=== PATIENT | female | born 1995 | race Caucasian/White ===

== ENCOUNTER 2018-04-05 21:38 | Emergency (ER) | payer OTHER, SELFPAY ==
[2018-04-05 21:39] VITALS: BP 126/66; PULSE 79; RESP 20; TEMP 36.7; O2SAT 97; BMI 31.9
--- NOTE | 2018-04-05 21:42 | RAD_ITS ---
STUDY: X-RAY - RIGHT ANKLE REASON FOR EXAM: Female, 22 years old. Slipped, twisted ankle. TECHNIQUE: 3 view(s) of the ankle. COMPARISON: None. FINDINGS: Normal visualized distal tibia and fibula. Normal medial and lateral malleoli. Normal tibiotalar articulation and ankle mortise. Normal visualized talus and calcaneus. The visualized subtalar, talonavicular, calcaneocuboid and tarsal articulations are normal. The soft tissue structures are unremarkable. RAD/Ankle min 3 Views IMPRESSION: Normal x-ray examination of the ankle. Electronically Signed: Magi Pisano MD at 22:09 EST Tel , Service support ,
--- NOTE | 2018-04-05 22:29 | ED.VISSUMM ---
- ER Visit Summary Date of Service: 04/05/18 Chief Complaint: Right ankle pain History of Present Illness: The patient is a 22 F who inverted her right ankle after a misstep going up steps earlier today. She can bear weight but has lateral pain. She has no knee injury no pain in her foot no other injury Physical Examination: Otherwise unremarkable exam, she has no knee pain no proximal fibular tenderness. She has no proximal fifth metatarsal pain. She has lateral malleolus tenderness and anterior ankle pain no laxity stable ankle. No proximal fifth metatarsal tenderness. Test Results: X-ray done per protocol shows a normal right ankle with no fracture. Emergency Department Course and Treatment: Aircast will be provided Discharge stable condition Impression: Right ankle sprain This note was generated with [employer] dictation software. It may contain incorrect words, spelling, and punctuation that were not noted in review of the chart prior to signing ED Disposition - Plan for ED Patient: Disposition: Home or Assisted Living Chief Complaint: Lower Extremity Injury Instructions: ED Sprain Ankle W X Ray Referrals: Km Barry DO [Primary Care Provider] - 1 Week if not improving
--- NOTE | 2018-04-05 22:33 | ED.DCSUM_ITS ---
- ER Visit Summary Date of Service: 04/05/18 Chief Complaint: Right ankle pain History of Present Illness: The patient is a 22 F who inverted her right ankle after a misstep going up steps earlier today. She can bear weight but has lateral pain. She has no knee injury no pain in her foot no other injury Physical Examination: Otherwise unremarkable exam, she has no knee pain no proximal fibular tenderness. She has no proximal fifth metatarsal pain. She has lateral malleolus tenderness and anterior ankle pain no laxity stable ankle. No proximal fifth metatarsal tenderness. Test Results: X-ray done per protocol shows a normal right ankle with no fractu re. Emergency Department Course and Treatment: Aircast will be provided Discharge stable condition Impression: Right ankle sprain This note was generated with [employer] dictation software. It may contain incorrect words, spelling, and punctuation that were not noted in review of the chart prior to signing ED Disposition - Plan for ED Patient: Disposition: Home or Assisted Living Chief Complaint: Lower Extremity Injury Instructions: ED Sprain Ankle W X Ray Referrals: Km Barry DO [Primary Care Provider] - 1 Week if not improving
[2018-04-05 22:43] VITALS: BP 126/80; PULSE 77; RESP 16; O2SAT 99
== END 2018-04-05 22:47 | disposition home or self-care (01) ==
PROVIDERS: Emergency Provider Emergency Medicine; Family Provider Student in an Organized Health Care Education/Training Program; PCP Student in an Organized Health Care Education/Training Program
DX: S93.401A Sprain of unspecified ligament of right ankle, initial encounter (principal); W18.49XA Other slipping, tripping and stumbling without falling, initial encounter; Y93.89 Activity, other specified
CPT/HCPCS: 73610; 99283

== ENCOUNTER 2018-06-03 05:50 | Emergency (ER) | payer OTHER, SELFPAY ==
[2018-06-03 05:51] VITALS: BP 139/81; PULSE 73; RESP 17; TEMP 36.4; O2SAT 96; BMI 28.1
[2018-06-03 05:59] VITALS: BP 139/81; PULSE 73; RESP 17; TEMP 36.4; O2SAT 96
--- NOTE | 2018-06-03 06:12 | US_ITS ---
STUDY: ULTRASOUND OF THE FEMALE PELVIS - COMPLETE REASON FOR EXAM: Female, 22 years old. Right lower quadrant pain. LMP: May 31, 2018. TECHNIQUE: Transabdominal. TECHNICAL QUALITY: Adequate. COMPARISON: None. FINDINGS: The uterus is anteverted and is in a midline position. The uterus measures 5.9 x 2.8 x 2.1 cm. Normal uterine cervix. The endometrium measures 3 mm in thickness, and is hyperechoic. There is no demonstrated endometrial mass. There is no demonstrated myometrial mass. I.U.D. - The patient does not have an I.U.D. The right ovary is visualized. The right ovary measures 3.7 x 2.4 x 2.0 cm. There is 2.0 cm cyst. There is no visualized right adnexal mass or complex lesion. There is normal arterial and normal venous vascularity. The left ovary is visualized. The left ovary measures 3.7 x 2.2 x 1.5 cm. There is no left ovarian cyst or ovarian mass. There is no visualized left adnexal mass or complex lesion. There is normal arterial and normal venous vascularity. There is no fluid in the cul-de-sac. The pre void volume of the bladder was 283 ml. US/Pelvic (Non ) IMPRESSION: Right adnexal cyst. Electronically Signed: Robert Duenas MD at 8:44 EST , Service support ,
--- NOTE | 2018-06-03 06:33 | ED.DCSUM_ITS ---
- ER Visit Summary Date of Service: 06/03/18 Chief Complaint: Pelvic pain History of Present Illness: The patient is a 22 F who complains of right lower abdominal and pelvic pain. She points to the right side of her pelvis. She states this was abrupt sudden onset about an hour and a half ago. She states her pain is excruciating and rates it as 8 out of 10. She currently is on her menstrual period. This is normal timing and her last period was 1 month ago. She denies any urinary symptoms such as dysuria frequency or urgency. No recent abnormal vaginal discharge. She did have one episode of nonbloody nonbilious emesis. No fevers. No history of prior similar symptoms. No history of ovarian cyst. No history of abdominal surgery. Physical Examination: Afebrile vitals normal Patient resting comfortably in no distress Heart regular rate and rhythm Lungs are clear the abdomen is soft nondistended she does have some very low right lower abdominal or pelvic tenderness no guarding no rebound Test Results: BMP normal. Urinalysis normal. negative. Pelvic ultrasound and CBC pending at the time of this dictation. Emergency Department Course and Treatment: Patient was given IV Toradol and Zo cecilia. She is resting comfortably on reevaluation. Given how low her pain is and the abrupt sudden onset I suspect this is more likely pelvic in origin possibly ovarian cyst. Ovarian torsion is lower on the differential given that she does appear quite comfortable. Patient signed out to the oncoming physician for follow-up on pelvic ultrasound results. Treatment Plan: [] Disposition: Discharge Impression: Right-sided pelvic pain This note was generated with [employer] dictation software. It may contain incorrect words, spelling, and punctuation that were not noted in review of the chart prior to signing ED Disposition - Plan for ED Patient: Chief Complaint: Abd Pain Referrals: Km Barry DO [Primary Care Provider] -
[2018-06-03 06:35] LABS: Mucous, Urine 0 SEEN /hpf (<or=2+); White Blood Cells 0 SEEN /hpf (0-5)
[2018-06-03 06:46] LABS: Anion Gap 9 (5-15); BUN 13 mg/dL (7-18); BUN/Creat Ratio 18.3 RATIO (10-20); Calcium,Total 8.8 mg/dL (8.5-10.1); Chloride 106 mmol/L (98-107); Creatinine, Serum 0.71 mg/dL (0.55-1.02); EST Glomerular Filtration Rate 109 mL/min (>60); Est Glom Filt Rate - Afr Amer 131 mL/min (>60); Estimated Creatinine Clearance 120.86 ml/min; Glucose 83 mg/dL (74-106); Potassium 3.9 mmol/L (3.5-5.1); Sodium Level 139 mmol/L (136-145)
[2018-06-03] MEDS: Ketorolac 30 MG/ML Syringe IV (06:47)
[2018-06-03] MEDS: Ondansetron 4 MG/2 ML Vial IV (06:47)
--- NOTE | 2018-06-03 06:47 | ED.RN ---
PER DR. ARTEAGA, PT DOES NOT MEET SEPSIS REQUIREMENTS, SEPSIS SCREENING CANCELLED.
[2018-06-03 06:50] LABS: Color, Urine Yellow (Yellow); Glucose, Dipstick Normal (Normal); Ketone-Dipstick Negative (Negative); Leukocyte Esterase-Dipstick Negative /ul (Negative); Nitrite-Dipstick Negative (Negative); Occult Blood-Urine 50 /ul (Negative); Protein-Dipstick Negative (Negative); Specific Gravity, Urine 1.015 (1.002-1.030); Urine Bilirubin Dipstick Negative (Negative); Urine Clarity Clear (Clear); Urine Urobilinogen Normal (Normal)
[2018-06-03 06:55] LABS: Bacteria RARE /hpf (None Seen); Squamous Epithelial Cells - UA 0-5 SEEN /hpf (5-10)
[2018-06-03 06:56] LABS: Internal QC Validated? YES +Cl - CLEAR BKGD; Pregnancy, Urine Negative Negative; Red Blood Cells-Urine 0-5 SEEN /hpf (0-5)
[2018-06-03 07:13] LABS: Absolute Lymphocyte Count 2.82 X10^3/ul (0.83-4.51); Absolute Neutrophil Count 6.2 X10^3/uL (2.0-7.7); Basophil# 0.05 X10^3/uL; Basophil% 0.5 % (0-1); Eosinophil# 0.15 X10^3/uL; Eosinophils% 1.5 % (0-5); Hemoglobin 13.1 g/dl (12.0-15.0); Lymphocyte # 2.82 X10^3/ul (4.0); Lymphocyte % 28.3 % (19-41); Mean Corp Hgb Conc 32.8 g/gl (32-36); Mean Corpuscular Hgb 29.2 pg (27.0-32.0); Mean Corpuscular Volume 89.3 fL (81-99); Mean Platelet Vol. 10.2 fl (6.2-12.0); Monocyte# 0.72 X10^3/uL; Monocyte% 7.2 % (0-10); Neutrophil % 62.4 % (47-70); Platelet Count 313 K/mm3 (150-450); RBC Distribution Width CV 12.7 % (11.6-14.6); RBC Distribution Width SD 40.8 fl (35.1-43.9); Red Blood Count 4.48 M/mm3 (4.2-5.4)
[2018-06-03 07:14] LABS: POSITIVE COUNT NO; POSITIVE DIFFERENTIAL NO; POSITIVE MORPHOLOGY NO
[2018-06-03 08:11] VITALS: BP 139/81; PULSE 67; RESP 16; O2SAT 98
--- NOTE | 2018-06-03 09:01 | ED.DEP ---
ED Disposition - Plan for ED Patient: Chief Complaint: Abd Pain Instructions: ED Cyst Ovarian Additional Instructions: call your OBGYN on Tuesday to arrange follow up
[2018-06-03 09:02] VITALS: BP 128/79; PULSE 64; RESP 16; O2SAT 97
== END 2018-06-03 09:07 | disposition home or self-care (01) ==
PROVIDERS: Emergency Medicine; Emergency Provider Emergency Medicine; Family Provider Student in an Organized Health Care Education/Training Program; PCP Student in an Organized Health Care Education/Training Program
DX: N83.201 Unspecified ovarian cyst, right side (principal)
CPT/HCPCS: 76856; 80048; 81001; 81025; 85025; 93976; 96374; 96375; 99283; A4216; J2405

== ENCOUNTER 2019-07-27 20:51 | Emergency (ER) | payer OTHER, SELFPAY ==
[2019-07-27 20:52] VITALS: BP 128/75; PULSE 71; RESP 15; TEMP 36.1; O2SAT 99; BMI 32.8
[2019-07-27 21:02] VITALS: BP 116/68; BP 118/75; BP 126/82; PULSE 65; PULSE 66; PULSE 83
--- NOTE | 2019-07-27 21:02 | EKG12_ITS ---
Test Reason : DYSRHYTHMIA Blood Pressure : / mmHG Vent. Rate : 063 BPM Atrial Rate : 063 BPM P-R Int : 180 ms QRS Dur : 104 ms QT Int : 418 ms P-R-T Axes : 019 014 023 degrees QTc Int : 427 ms Normal sinus rhythm with sinus arrhythmia Normal ECG Confirmed by BRONWYN ASHLEY, PADMINI ([id number]), school photograph editor TRACI CHATTERJEE ([id number]) on 07/30/2019 10:04:01 AM Referred By: KIMBERLEY Confirmed By:PADMINI BARNHART MD
[2019-07-27] MEDS: 0.9% Normal Saline 1,000 ML 1000 ML IV (21:20)
[2019-07-27 21:24] LABS: Absolute Lymphocyte Count 2.69 X10^3/uL (0.83-4.51); Absolute Neutrophil Count 6.5 X10^3/uL (2.0-7.7); Basophil# 0.05 X10^3/uL; Basophil% 0.5 % (0-1); Eosinophil# 0.09 X10^3/uL; Eosinophils% 0.9 % (0-5); Hematocrit 39.7 % (37-47); Lymphocyte # 2.69 X10^3/ul (4.0); Lymphocyte % 27.1 % (19-41); Mean Corp Hgb Conc 32.7 g/dL (32-36); Mean Corpuscular Hgb 28.7 pg (27.0-32.0); Mean Corpuscular Volume 87.6 fL (81-99); Monocyte# 0.59 X10^3/uL; Monocyte% 5.9 % (0-10); NRBC Flagged by Analyzer 0 % (0-5); Neutrophil # 6.47 X10^3/uL (2.7-7.7); Neutrophil % 65.2 % (47-70); Platelet Count 324 K/mm3 (150-450); RBC Distribution Width SD 38.8 fl (35.1-43.9); Red Blood Count 4.53 M/mm3 (4.2-5.4); White Blood Count 9.9 K/mm3 (4.4-11.0)
[2019-07-27 21:46] LABS: Internal QC Validated? YES +Cl - CLEAR BKGD; Pregnancy, Serum, hCG Quali. NEGATIVE Negative
[2019-07-27 21:50] LABS: Anion Gap 6 (5-15); BUN 11 mg/dL (7-18); BUN/Creat Ratio 12.4 RATIO (10-20); Chloride 108 mmol/L (98-107); Creatinine, Serum 0.89 mg/dL (0.55-1.02); EST Glomerular Filtration Rate 83 mL/min (>60); Est Glom Filt Rate - Afr Amer 101 mL/min (>60); Glucose 83 mg/dL (74-106); Potassium 3.7 mmol/L (3.5-5.1); Sodium Level 140 mmol/L (136-145); Thyroid Stim Hormone (TSH) 0.62 uIU/mL (0.358-3.74)
--- NOTE | 2019-07-27 22:17 | ED.DCSUM_ITS ---
- ER Visit Summary Date of Service: 07/27/19 Chief Complaint: [Dizziness and lightheadedness] History of Present Illness: The patient is a 23 F [presents to the emergency department with symptoms for about a week off and on. Patient's have been having some episodes daily where she feels like her hands and feet start to feel tingly and then she becomes very alert of what her body is doing and she gets hot and flushed and then feels somewhat short of breath and out of it. Symptoms usually last 5 or 6 minutes and then they resolved. Patient has been under increased stress lately as she had recently had a break-up with a boyfriend. She is currently on her menstrual period. Patient denies any recent illness. She denies any falls or head injuries. She denies any headache. Patient does have history of depression.] Physical Examination: [HEENT-PERRLA, EOMI. Cranial nerves II through XII grossly intact. TMs clear. Mucous membranes moist. No adenopathy. Cardiovascular-regular rate and rhythm without murmur or ectopy Lungs-clear to auscultation, chest wall stable without crepitus or subcu emphysema Abdomen-normoactive bowel sounds, soft, nontender, no rebound or rigidity, no peritoneal signs. Neuro [id number] and heel cheatham testing within normal limits, negative Romberg, negative for drift, fundi benign Extremities-intact ?4, normal range of motion, normal pulses, atraumatic] Test Results: [EKG obtained arrival shows sinus rhythm with a ventricular rate of 63 bpm with no acute segment changes. CBC with differential was normal. Chemistries normal. TSH was 0.62. hCG was negative.] Emergency Department Course and Treatment: [Patient had orthostatic vital signs here that were negative. Patient received normal saline 1 L IV.] Treatment Plan: [This point etiology of symptoms and dizziness unclear although I suspect possibly anxiety. Patient will be given a prescription for PRN Ativan. Advised to follow-up with primary care physician within next 3 to 5 d ays.] Disposition: [Discharged home in stable condition] Impression: [Dizziness-etiology uncertain Anxiety] This note was generated with [employer] software. It may contain incorrect words, spelling, and punctuation that were not noted in review of the chart prior to signing ED Disposition - Plan for ED Patient: Referrals: Km Barry DO [Primary Care Provider] -
--- NOTE | 2019-07-27 22:20 | ED.DEP ---
ED Disposition - Plan for ED Patient: Instructions: DIZZINESS, Unk Cause, Anxiety Reaction Prescriptions: Lorazepam [Ativan] 1 mg PO TID PRN #10 tab PRN Reason: Anxiety Prescription Printed Referrals: Km Barry DO [Primary Care Provider] - 3-5 Days
== END 2019-07-27 22:29 | disposition home or self-care (01) ==
PROVIDERS: Emergency Provider Emergency Medicine; PCP Student in an Organized Health Care Education/Training Program
DX: R42 Dizziness and giddiness (principal); F41.9 Anxiety disorder, unspecified
CPT/HCPCS: 80048; 84443; 84703; 85025; 93005; 99284; A4216

== ENCOUNTER → 2020-11-17 14:11 | Outpatient (CLI) | payer OTHER, SELFPAY ==
[2019-12-20 11:00] VITALS: BMI 32.8
[2020-11-17 15:50] LABS: Absolute Lymphocyte Count 1.56 X10^3/uL (0.83-4.51); Absolute Neutrophil Count 6.8 X10^3/uL (2.0-7.7); Basophil# 0.03 X10^3/uL; Basophil% 0.3 % (0-1); Eosinophil# 0.05 X10^3/uL; Eosinophils% 0.6 % (0-5); Hematocrit 41.1 % (37-47); Hemoglobin 13.4 g/dL (12.0-15.0); Lymphocyte # 1.56 X10^3/ul (0.83-4.51); Lymphocyte % 17.2 % (19-41); Mean Corp Hgb Conc 32.6 g/dL (32-36); Mean Corpuscular Hgb 29.5 pg (27.0-32.0); Mean Corpuscular Volume 90.3 fL (81-99); Mean Platelet Vol. 10.8 fl (6.2-12.0); Monocyte# 0.62 X10^3/uL; Monocyte% 6.8 % (0-10); NRBC Flagged by Analyzer 0 % (0-5); Neutrophil # 6.78 X10^3/uL (2.7-7.7); Neutrophil % 74.9 % (47-70); Platelet Count 306 K/mm3 (150-450); RBC Distribution Width SD 39.7 fl (35.1-43.9); Red Blood Count 4.55 M/mm3 (4.2-5.4); White Blood Count 9.1 K/mm3 (4.4-11.0)
[2020-11-18 09:11] LABS: HIV - WCH Non-Reactive (Nonreactive); Hepatitis B Surface Antigen Non-Reactive (Nonreactive); Hepatitis C Antibody Non-Reactive (Nonreactive); Rubella IgG Reactive (Nonreactive); Syphilis Antibodies Non-reactive
[2020-11-19 20:08] LABS: Chlamydia By Nucleic Acid AMP Negative (Negative)
[2020-11-19 22:18] LABS: Gonococcus By Nucleic Acid AMP Negative (Negative)
[2020-11-23 15:17] LABS: HPV Reflexed? NOT INDICATED
== END ==
PROVIDERS: PCP Student in an Organized Health Care Education/Training Program; Visit Provider Obstetrics & Gynecology
DX: Z34.81 Encounter for supervision of other normal pregnancy, first trimester (principal); Z12.4 Encounter for screening for malignant neoplasm of cervix; Z11.3 Encounter for screening for infections with a predominantly sexual mode of transmission
CPT/HCPCS: 36415; 85025; 86703; 86762; 86780; 86803; 87086; 87088; 87340; 87491; 87591; 88175; G0145

== ENCOUNTER → 2021-03-13 15:11 | Outpatient (CLI) | payer OTHER, SELFPAY ==
[2021-03-13 16:13] LABS: Hematocrit 34.5 % (37-47); Hemoglobin 11.2 g/dL (12.0-15.0); Mean Corp Hgb Conc 32.5 g/dL (32-36); Mean Corpuscular Hgb 29.4 pg (27.0-32.0); Mean Corpuscular Volume 90.6 fL (81-99); Mean Platelet Vol. 10.6 fl (6.2-12.0); Platelet Count 251 K/mm3 (150-450); RBC Distribution Width CV 13.2 % (11.6-14.6); RBC Distribution Width SD 43.2 fl (35.1-43.9); Red Blood Count 3.81 M/mm3 (4.2-5.4); White Blood Count 13.2 K/mm3 (4.4-11.0)
[2021-03-13 16:23] LABS: Glucose Challenge Gest 1H 50g 140 mg/dL (70-140)
== END ==
PROVIDERS: PCP Student in an Organized Health Care Education/Training Program; Visit Provider Obstetrics & Gynecology
DX: Z34.82 Encounter for supervision of other normal pregnancy, second trimester (principal)
CPT/HCPCS: 36415; 82950; 85027

== ENCOUNTER 2021-04-15 20:25 | Emergency (ER) | payer OTHER, SELFPAY ==
[2021-04-15 20:26] VITALS: BP 120/80; PULSE 75; RESP 16; TEMP 35.7; O2SAT 98; BMI 35.4
--- NOTE | 2021-04-15 21:01 | EKG12_ITS ---
Test Reason : CP Blood Pressure : / mmHG Vent. Rate : 065 BPM Atrial Rate : 065 BPM P-R Int : 156 ms QRS Dur : 096 ms QT Int : 392 ms P-R-T Axes : 039 042 040 degrees QTc Int : 407 ms Normal sinus rhythm Normal ECG Confirmed by PAULETTE ASHLEY, MARCK ([id number]), mapping editor TRACI CHATTERJEE ([id number]) on 04/17/2021 9:27:28 A M Referred By: KIMBERLI/AMIRA Confirmed By:JASON CALDWELL MD
== END 2021-04-15 21:18 | disposition left against medical advice (07) ==
LOC: ED 21:24
PROVIDERS: PCP Student in an Organized Health Care Education/Training Program
DX: R06.02 Shortness of breath (principal); Z53.21 Procedure and treatment not carried out due to patient leaving prior to being seen by health care provider
CPT/HCPCS: 93005

== ENCOUNTER 2021-05-23 12:52 | Outpatient (CLI) | payer OTHER, MEDICAID, SELFPAY ==
[2021-05-23] VITALS (9 sets, daily range): BP systolic 132–150; BP diastolic 79–91; PULSE 56–92; TEMP 36.3; BMI 36.6
[2021-05-23] MEDS: Acetaminophen 500 MG Tablet 1000 MG PO (14:06)
[2021-05-23 14:22] LABS: Hematocrit 31.6 % (37-47); Hemoglobin 10.6 g/dL (12.0-15.0); Mean Corp Hgb Conc 33.5 g/dL (32-36); Mean Corpuscular Hgb 28.7 pg (27.0-32.0); Mean Corpuscular Volume 85.6 fL (81-99); Mean Platelet Vol. 10.8 fl (6.2-12.0); Platelet Count 217 K/mm3 (150-450); RBC Distribution Width CV 13.1 % (11.6-14.6); RBC Distribution Width SD 40.2 fl (35.1-43.9); Red Blood Count 3.69 M/mm3 (4.2-5.4); White Blood Count 11.3 K/mm3 (4.4-11.0)
[2021-05-23 14:25] LABS: Protein, Urine (Random) 348.8 mg/dL (<11.9); Protein:Creat Ratio 890 mg/g CRE (0-200)
[2021-05-23 14:26] LABS: Mucous, Urine 0 SEEN /hpf (<or=2+)
[2021-05-23 14:27] LABS: Color, Urine Yellow (Yellow); Glucose, Dipstick Normal (Normal); Ketone-Dipstick 15 mg/dl (Negative); Leukocyte Esterase-Dipstick 100 /ul (Negative); Nitrite-Dipstick Negative (Negative); Occult Blood-Urine 25 /ul (Negative); Protein-Dipstick 100 mg/dl (Negative); Specific Gravity, Urine 1.025 (1.002-1.030); Urine Clarity Cloudy (Clear); Urine Urobilinogen 1 mg/dl (Normal)
[2021-05-23 14:29] LABS: Urine Bilirubin Dipstick 1 mg/dL (Negative)
[2021-05-23 14:33] LABS: White Blood Cells 0-5 SEEN /hpf (0-5)
[2021-05-23 14:34] LABS: Bacteria 3+ /hpf (None Seen); Red Blood Cells-Urine 0-5 SEEN /hpf (0-5); Squamous Epithelial Cells - UA 10-25 SEEN /hpf (5-10)
[2021-05-23 14:46] LABS: AST(SGOT) 10 U/L (15-37); Alanine Aminotransfer ALT/SGPT 14 U/L (13-56); Creatinine, Serum 0.51 mg/dL (0.55-1.02); EST Glomerular Filtration Rate 156 mL/min (>60); Est Glom Filt Rate - Afr Amer 189 mL/min (>60); Estimated Creatinine Clearance 163.98 ml/min; LDH 143 U/L (84-246); Uric Acid 4.5 mg/dL (2.6-6.0)
--- NOTE | 2021-05-24 09:32 | PN_ITS ---
Progress Note 25-year-old G1, P0 at 35/1 weeks presenting with swelling of her lower extremities and hands and headache without vision changes. Blood pressure ahmet vated upon arrival, decreased after being assessed in triage. No severe range blood pressures. Denied headache, vision changes, chest pain, shortness of breath, nausea or vomiting, right upper quadrant pain. Preeclampsia labs sent. Labs were within normal limits aside from urine protein creatinine ratio, however urinalysis appeared contaminated. Planned for 24-hour urine and blood pressure check in the next day. Swelling minimal per RN. heart rate:125/mod shubham/+accel/no decel [place]: quiet Assessment/plan: Gestational hypertension at this time, questionable preeclampsia without severe features. Has urinalysis was contaminated, will 24- hour urine collection pending for protein. Signs and symptoms of preeclampsia reviewed, patient discharged. Will have follow-up in office this week. Headache improved with Tylenol.
[2021-05-24 16:37] LABS: 24 Hour Urine Protein 864.4 mg/24HR (<150 MG/24HR); 24HR. UA Prot. Total Volume 2825 mL; 24HR. Urine Creatinine 0.75 g/24 HR (0.70-1.90); Urine Protein (24 Hour) 30.6 mg/dL (<11.9)
[2021-05-24 16:54] LABS: Creatinine Serum Creat 0.5 mg/dL (0.6-1.0); Creatinine Urine 26.8 mg/dL (NO RANGE EST.); EST Glomerular Filtration Rate 156 mL/min (>60); Est Glom Filt Rate - Afr Amer 188 mL/min (>60)
[2021-05-24 16:56] LABS: Creat.Clear Total Volume 2825 mL; Creatinine Clearance 103 ml/min (100-200)
== END 2021-05-23 15:40 | disposition home or self-care (01) ==
LOC: WPOUT 13:00 → WP 13:00
PROVIDERS: PCP Student in an Organized Health Care Education/Training Program; Referring Provider Student in an Organized Health Care Education/Training Program; Visit Provider Student in an Organized Health Care Education/Training Program
DX: O13.3 Gestational [pregnancy-induced] hypertension without significant proteinuria, third trimester (principal); Z3A.35 35 weeks gestation of pregnancy
CPT/HCPCS: 36415; 59025; 59050; 81001; 81050; 82565; 82570; 82575; 83615; 84156; 84450; 84460; 84550; 85027; 99218; G0378

== ENCOUNTER 2021-05-24 16:00 | Outpatient (CLI) | payer OTHER, MEDICAID, SELFPAY ==
[2021-05-24 16:21] VITALS: BP 145/93; PULSE 78
--- NOTE | 2021-05-24 16:24 | NURSING ---
1605 159/100 73 HR 1620 145/93 78 HR
--- NOTE | 2021-05-24 17:00 | NURSING ---
Patient does have bilateral lower extremity edema, which Dr. Christine Dennis also assessed. No headache or visual disturbances.
--- NOTE | 2021-05-24 17:15 | NURSING ---
[address] hour [address] with Dr. Christine Dennis, along with blood pressures. Dr. Dennis in to educate patient on pre-eclampsia. Hand out on pre-eclampsia given. Patient has blood pressure cuff on home. Plan is for [facility] nurses to follow up with patient on Tuesday. Patient to come back with worsening symptoms or blood pressures.
--- NOTE | 2021-05-24 17:20 | PCM.PN.BLA ---
Progress Note 35/2w return visit for BP check and 24 hr urine. Pt asymptomatic today. Denies headache, vision changes, chest pain or shortness of breath, nausea or vomiting, right upper quadrant pain. Reports pedal edema. On exam: Cranial nerves II through XII grossly intact +2 pedal edema 24-hour urine elevated BPs in hypertensive range, not severe range Discharge home with preeclampsia precautions. Patient to return with headache that has not resolved by Tylenol, visual disturbances, right upper quadrant pain, nausea or vomiting, not feeling well. In addition to signs or symptoms of labor. Patient does have BP cuff at home. Patient aware to call or come in for elevated pressures over 160/110 Will need to visit this week for twice-weekly testing and growth ultrasound and blood pressure check Plan for 37-week delivery for preeclampsia without severe features. All questions answered.
== END 2021-05-24 17:20 | disposition home or self-care (01) ==
LOC: WPOUT 16:09 → WP 16:10
PROVIDERS: PCP Student in an Organized Health Care Education/Training Program; Visit Provider Student in an Organized Health Care Education/Training Program
DX: O14.03 Mild to moderate pre-eclampsia, third trimester (principal); Z3A.35 35 weeks gestation of pregnancy
CPT/HCPCS: 99218; G0378

== ENCOUNTER 2021-05-25 00:05 | Inpatient (IN) | payer OTHER, MEDICAID, SELFPAY ==
[2021-05-24] VITALS (19 sets, daily range): BP systolic 139–176; BP diastolic 91–101; PULSE 62–86; TEMP 36.4; O2SAT 97–99; BMI 37.5
[2021-05-24 23:52] LABS: Absolute Lymphocyte Count 1.76 X10^3/uL (0.83-4.51); Absolute Neutrophil Count 8.6 X10^3/uL (2.0-7.7); Basophil# 0.04 X10^3/uL; Basophil% 0.4 % (0-1); Eosinophil# 0.08 X10^3/uL; Eosinophils% 0.7 % (0-5); Hematocrit 33.2 % (37-47); Hemoglobin 11.1 g/dL (12.0-15.0); Lymphocyte # 1.76 X10^3/ul (0.83-4.51); Lymphocyte % 15.8 % (19-41); Mean Corp Hgb Conc 33.4 g/dL (32-36); Mean Corpuscular Hgb 28.5 pg (27.0-32.0); Mean Corpuscular Volume 85.3 fL (81-99); Mean Platelet Vol. 10.7 fl (6.2-12.0); Monocyte# 0.61 X10^3/uL; Monocyte% 5.5 % (0-10); NRBC Flagged by Analyzer 0 % (0-5); Neutrophil # 8.58 X10^3/uL (2.7-7.7); Neutrophil % 76.9 % (47-70); Platelet Count 213 K/mm3 (150-450); RBC Distribution Width CV 13.1 % (11.6-14.6); RBC Distribution Width SD 39.9 fl (35.1-43.9); Red Blood Count 3.89 M/mm3 (4.2-5.4); White Blood Count 11.2 K/mm3 (4.4-11.0)
[2021-05-24] MEDS: Betamethasone/Betamethasone 30 MG/5 ML Vial 12 MG IM (23:53)
[2021-05-24] MEDS: Ondansetron ODT 4 MG Tablet PO (23:53)
[2021-05-24] MEDS: Acetaminophen 500 MG Tablet 1000 MG PO (23:53)
[2021-05-25] VITALS (101 sets, daily range): BP systolic 127–173; BP diastolic 65–100; PULSE 63–202; RESP 16–20; TEMP 36.2–37; O2SAT 81–100
[2021-05-25 00:13] LABS: ALB/GLOB Ratio 0.5 RATIO (0.9-2.4); AST(SGOT) 12 U/L (15-37); Alanine Aminotransfer ALT/SGPT 12 U/L (13-56); Alkaline Phosphatase 87 U/L (45-117); Anion Gap 8 (5-15); BUN 6 mg/dL (7-18); BUN/Creat Ratio 11.2 RATIO (10-20); Calcium,Total 8.4 mg/dL (8.5-10.1); Chloride 110 mmol/L (98-107); Creatinine, Serum 0.54 mg/dL (0.55-1.02); EST Glomerular Filtration Rate 147 mL/min (>60); Est Glom Filt Rate - Afr Amer 178 mL/min (>60); Estimated Creatinine Clearance 154.87 ml/min; Globulin 3.8 g/dL (2.2-4.2); Glucose 87 mg/dL (74-106); Potassium 3.9 mmol/L (3.5-5.1); Protein, Total 5.8 g/dL (6.4-8.2); Sodium Level 139 mmol/L (136-145)
[2021-05-25] MEDS: Labetalol (Prefilled) 20 MG/4 ML IV (00:25)
--- NOTE | 2021-05-25 00:29 | HP.PCM.OB_ITS ---
History and Physical Date of Admission: 05/25/21 HPI: 25-year old at 35/3 weeks, JENN 06/26/2021 by 10-week ultrasound, admitted for preeclampsia with severe features. Patient was diagnosed with preeclampsia over this weekend based on elevated blood pressures and proteinuria. At home tonight she had a severe range blood pressure. She has a vague headache that she is unsure if it is a stress headache or something else, had not taken any Tylenol. During evaluation in triage she developed severe range blood pressures. Therefore decision for induction was made. Reports mild nausea without vomiting. Denies fevers or chills, chest pain or shortness of breath, right upper quadrant pain, diarrhea or constipation. Denies contra ctions, leaking of fluid, vaginal bleeding. Reports movement. complicated by: Preeclampsia with severe features Medical history: Denies Surgical history: Denies Allergies: No known drug allergies Family history: Noncontributory Social history: Denies tobacco, alcohol, drug use Medications: vitamin Review of systems: Negative otherwise stated as above Physical exam: Vitals: Blood pressure 173/100, pulse 67, oxygen saturation 97% on room air General: Patient is in no acute distress, comfortable in bed HEENT: Normocephalic/atraumatic, pupils equally round reactive to light and accommodation Cardiorespiratory: Regular heart rate, no accessory muscle use, no increased effort Abdomen: Soft, nontender, no right upper quadrant pain, gravid Extremities: 2+ pitting edema pedal Neurologic: Cranial nerves II through XII grossly intact, no clonus, patellar reflexes bilaterally 2/4 Cervical exam: Pending panel: A positive Rubella immune Syphilis nonreactive HIV nonreactive Hepatitis B/hepatitis C nonreactive/nonreactive Gonorrhea/chlamydia negative/negative Labs today: CBC: WBC 11.2, hemoglobin/hematocrit 11.1/33.2, platelets 213 CMP: Creatinine 0.54, AST 12/ALT 12, total bilirubin 0.2, LDH pending 24-hour protein 864.4 mg Assessment/plan: 25-year-old G1, P0 at 35/3 weeks admitted with preeclampsia with severe features based on blood pressures. -Admit to labor and delivery for induction of labor -Labetalol 20 mg IV to be given -Start magnesium sulfate 6 g bolus followed by 2 g an hour. Will collect every 6 hours mag levels. -Celestone to be given -Covid swab Assessment & Plan Assessment/Plan (1) Severe pre-eclampsia:
[2021-05-25] MEDS: Lactated Ringers 1,000 ML 50 ML IV (00:30)
[2021-05-25] MEDS: Magnesium Sulfate 4gm/100mL 4 GM/100 ML IV.SOLN. IV (00:31)
[2021-05-25 00:46] LABS: Absolute Lymphocyte Count 2.02 X10^3/uL (0.83-4.51); Absolute Neutrophil Count 9.9 X10^3/uL (2.0-7.7); Basophil# 0.04 X10^3/uL; Basophil% 0.3 % (0-1); Eosinophil# 0.09 X10^3/uL; Eosinophils% 0.7 % (0-5); Hematocrit 33.3 % (37-47); Hemoglobin 11.2 g/dL (12.0-15.0); Lymphocyte # 2.02 X10^3/ul (0.83-4.51); Lymphocyte % 15.7 % (19-41); Mean Corp Hgb Conc 33.6 g/dL (32-36); Mean Corpuscular Hgb 28.5 pg (27.0-32.0); Mean Corpuscular Volume 84.7 fL (81-99); Mean Platelet Vol. 11.1 fl (6.2-12.0); Monocyte# 0.82 X10^3/uL; Monocyte% 6.4 % (0-10); NRBC Flagged by Analyzer 0 % (0-5); Neutrophil # 9.85 X10^3/uL (2.7-7.7); Neutrophil % 76.3 % (47-70); Platelet Count 228 K/mm3 (150-450); RBC Distribution Width CV 13.1 % (11.6-14.6); RBC Distribution Width SD 40.5 fl (35.1-43.9); Red Blood Count 3.93 M/mm3 (4.2-5.4); White Blood Count 12.9 K/mm3 (4.4-11.0)
[2021-05-25] MEDS: 0.9% Saline Lock 10 ML Syringe IV (00:47)
[2021-05-25] MEDS: Magnesium Sulfate 4gm/100mL 2 GM/50 ML IV.SOLN. IV (00:55)
[2021-05-25] MEDS: Magnesium Sulfate 20 GM/500 ML BAG IV ×3 (01:13→20:30)
[2021-05-25] MEDS: miSOPROStol 25 MCG TABLET VAGINAL ×4 (02:04→16:57)
[2021-05-25 02:35] LABS: Group B Strep DNA By PCR Negative (Negative); Internal Control PASS; Probe Check PASS; Specimen Processing Control PASS
[2021-05-25 06:47] LABS: Magnesium 4.5 mg/dL (1.6-2.6)
[2021-05-25 12:34] LABS: Magnesium 5.1 mg/dL (1.6-2.6)
[2021-05-25 18:04] LABS: Magnesium 5.5 mg/dL (1.6-2.6)
--- NOTE | 2021-05-25 18:06 | PCM.PN.BLA ---
Progress Note Patient seen and examined. Induction of labor in progress. Patient has now received 4 doses of Cytotec vaginally. Cervix closed per RN on last check. Patient feeling some cramping. Denies headache currently, nausea or vomiting, right upper quadrant pain, chest pain or dyspnea. Vital signs are stable Patient comfortable in bed. Abdomen soft and nontender no right upper quadrant pain. 2+ pedal edema. Last magnesium level 5.5 which is in the therapeutic range. heart rate: 125/moderate variability/+accel/no decel [place]: irregular Assessment/plan: Continue induction of labor. Will change to Pitocin this evening around 9 or 10:00 PM. Continue magnesium sulfate and mag levels every 6 hours. Plan to start PCN at 3 cm. Patient in good spirits at this time. All questions answered.
[2021-05-25] MEDS: Acetaminophen 500 MG Tablet PO (20:37)
[2021-05-25] MEDS: Oxytocin 30 units/NS 500 ml 30 UNITS/500 ML IV.SOLN IV (21:07)
[2021-05-26] VITALS (133 sets, daily range): BP systolic 98–153; BP diastolic 51–90; PULSE 60–122; RESP 14–16; TEMP 35.9–36.7; O2SAT 92–100
[2021-05-26] MEDS: Betamethasone/Betamethasone 30 MG/5 ML Vial 12 MG IM (00:01)
[2021-05-26 00:26] LABS: Magnesium 5.9 mg/dL (1.6-2.6)
[2021-05-26] MEDS: Magnesium Sulfate 20 GM/500 ML BAG IV ×2 (05:57→16:02)
[2021-05-26] MEDS: Penicillin G 3,000,000 Units 50 ML 100 UNITS IV ×5 (05:58→22:34)
--- NOTE | 2021-05-26 08:55 | PCM.PN.OB ---
Subjective Subjective Headache resolved. Denies upper abdominal pain. Contractions 4/10 painfulness. +FM. No nausea, vomiting, shortness of breath. Objective Data Objective Data Vital Signs: Vital Signs Temp Pulse Resp BP Pulse Ox 97.9 F 86 16 142/80 H 97 05/26/21 08:04 05/26/21 08:05 05/26/21 08:04 05/26/21 08:04 05/26/21 08:05 Oxygen Delivery Method Room Air Weight: 108.635 kg Body Mass Index (BMI) 37.5 Intake & Output: Intake and Output for Last 24 Hours 05/24/21 05/25/21 05/26/21 23:59 23:59 23:59 Intake Total 2847.48 / 2847.48 840.99 / 840.99 Output Total 1300 / 1300 400 / 400 Balance 1547.48 / 1547.48 440.99 / 440.99 Lab / Micro Data Result Diagrams: 05/28/21 06:20 05/26/21 14:00 Labs: Laboratory Results - last 24 hr 05/25/21 11:55: Magnesium 5.1 H* 05/25/21 17:35: Magnesium 5.5 H* 05/25/21 23:57: Magnesium 5.9 H* 05/26/21 05:50: Magnesium 6.0 H* Micro: Microbiology 05/25/21 00:37 Nasal Secretion SARS-CoV-2 Antigen (Rapid) - Final Physical Exam Const alert, oriented x3 and no apparent distress Resp normal respiratory effort, normal air movement and clear to auscultation bilaterally Cardio regular rate, regular rhythm, S1 normal heart sound and S2 normal heart sound GI GI Narrative: gravid, soft, nontender, nondistended Narrative: 3, moderate and midposition \Cat I FHR Extremity no calf tenderness Assessment & Plan (1) 35 weeks gestation of : (2) Severe pre-eclampsia: QUALIFIERS: Trimester: third trimester Qualified Code(s): O14.13 - Severe pre-eclampsia, third trimester PLAN: Amniotomy performed, clear fluid Continue pitocin as tolerated by mother and fetus status reassuring No si/sx worsening preeclampsia or magnesium toxicity Continue Magnesium
[2021-05-26 09:17] LABS: LDL, Direct 120295 159 mg/dL (0-99)
[2021-05-26] MEDS: Ondansetron 4 MG/2 ML Vial IV ×2 (10:45→21:32)
[2021-05-26] MEDS: Lactated Ringers 500 ML 999 ML IV ×2 (11:15→12:24)
[2021-05-26] MEDS: fentaNYL-bupivacaine (epidural) 100 ML BAG EPIDURAL ×3 (12:11→22:34)
[2021-05-26 14:12] LABS: Hematocrit 31.2 % (37-47); Hemoglobin 10.4 g/dL (12.0-15.0); Mean Corp Hgb Conc 33.3 g/dL (32-36); Mean Corpuscular Hgb 28.3 pg (27.0-32.0); Mean Corpuscular Volume 84.8 fL (81-99); Mean Platelet Vol. 10.7 fl (6.2-12.0); Platelet Count 256 K/mm3 (150-450); RBC Distribution Width CV 13.2 % (11.6-14.6); RBC Distribution Width SD 40.8 fl (35.1-43.9); Red Blood Count 3.68 M/mm3 (4.2-5.4); White Blood Count 17.2 K/mm3 (4.4-11.0)
[2021-05-26 14:27] LABS: AST(SGOT) 13 U/L (15-37); Alanine Aminotransfer ALT/SGPT 12 U/L (13-56); Creatinine, Serum 0.55 mg/dL (0.55-1.02); EST Glomerular Filtration Rate 142 mL/min (>60); Est Glom Filt Rate - Afr Amer 171 mL/min (>60); Estimated Creatinine Clearance 152.06 ml/min; Uric Acid 5.8 mg/dL (2.6-6.0)
[2021-05-26 16:32] LABS: Magnesium 6.9 mg/dL (1.6-2.6)
[2021-05-26 16:42] LABS: LDH 227 U/L (84-246)
--- NOTE | 2021-05-26 18:42 | PCM.PN.BLA ---
Progress Note LABOR PROGRESS NOTE Denies headache, vision changes, shortness of breath. Lightheadedness resolved. GEN - NAD, AAO x 3 FHR 125, moderate variability, + accelerations, no decelerations SVE 3/75/-2, moderate and midposition TOCO 1-2/10 min A/P: 25yo G1 @ 35 +4 wga, IOL for preeclampsia with severe features -Post betamethasone -No si/sx worsening preeclampsia -Tolerates magnesium - status reassuring
[2021-05-26] MEDS: Lactated Ringers 1,000 ML 75 ML IV (19:25)
[2021-05-26] MEDS: 0.9% Saline Lock 10 ML Syringe IV ×2 (21:32→22:55)
--- NOTE | 2021-05-26 22:19 | PCM.PN.OB ---
Subjective Subjective Denies headache or vision changes. c/o right lower quadrant and hip pain with contractions. Objective Data Objective Data Vital Signs: Vital Signs Temp Pulse Resp BP Pulse Ox 97.9 F 76 16 120/73 95 05/26/21 21:10 05/26/21 22:10 05/26/21 21:10 05/26/21 22:10 05/26/21 21:10 Oxygen Delivery Method Room Air Weight: 108.635 kg Body Mass Index (BMI) 37.5 Intake & Output: Intake and Output for Last 24 Hours 05/24/21 05/25/21 05/26/21 23:59 23:59 23:59 Intake Total 2847.48 / 2847.48 3953.20 / 3953.20 Output Total 1300 / 1300 1000 / 1000 Balance 1547.48 / 1547.48 2953.20 / 2953.20 Lab / Micro Data Result Diagrams: 05/26/21 14:00 05/26/21 14:00 Labs: Laboratory Results - last 24 hr 05/24/21 23:40: LDL Cholesterol Direct 159 H, LDL Choles Direct Cmmnt TNP 05/25/21 23:57: Magnesium 5.9 H* 05/26/21 05:50: Magnesium 6.0 H* 05/26/21 14:00: WBC 17.2 H, RBC 3.68 L, Hgb 10.4 L, Hct 31.2 L, MCV 84.8, MCH 28.3, MCHC 33.3, RDW Std Deviation 40.8, RDW Coeff of Tricia 13.2, Plt Count 256, MPV 10.7 05/26/21 14:00: Creatinine 0.55, Estim Creat Clear Calc 152.06, Est GFR (MDRD) Af Amer 171, Est GFR (MDRD) Non-Af 142, Uric Acid 5.8, AST 13 L, ALT 12 L 05/26/21 16:05: Magnesium 6.9 H* 05/26/21 16:05: Lactate Dehydrogenase 227 Micro: Microbiology 05/25/21 00:37 Nasal Secretion SARS-CoV-2 Antigen (Rapid) - Final Physical Exam Narrative GEN - NAD, AAO x 3 FHR 130, minimal variability, no accelerations, no decelerations TOCO 2/10 min SVE 5/80/-1, moderate and midposition, head well applied Assessment & Plan (1) 35 weeks gestation of : PLAN: Active labor Cat II FHR Continue in labor at this time (2) Severe pre-eclampsia: QUALIFIERS: Trimester: third trimester Qualified Code(s): O14.13 - Severe pre-eclampsia, third trimester PLAN: Continue magnesium as tolerated
[2021-05-26] MEDS: proCHLORPERazine 10 MG/2 ML Vial IV (22:55)
[2021-05-26] MEDS: Dextrose 5%-Lactated Ringers 1,000 ML 100 ML IV (22:57)
[2021-05-27] VITALS (62 sets, daily range): BP systolic 121–160; BP diastolic 62–97; PULSE 70–180; RESP 14–18; TEMP 36.1–36.7; O2SAT 81–99
[2021-05-27] MEDS: Oxytocin 30 units/NS 500 ml 30 UNITS/500 ML IV.SOLN 334 UNITS IV (01:16)
[2021-05-27] MEDS: miSOPROStol 200 MCG Tablet 800 MCG RC (01:22)
[2021-05-27] MEDS: Magnesium Sulfate 20 GM/500 ML BAG IV ×2 (01:37→11:09)
--- NOTE | 2021-05-27 01:46 | PLAC_PTH ---
PATIENT: GAMALIEL GEIGER LOC: [facility] U#:[id number] AGE/SX: 25/F ROOM: WP013 RE05/25/[address]: Dr. Alesha Garcia MD : 1995 BED: 1 DIS: 05/30/2021 SPEC #: [id number] RECD: 05/27/21 02:19 STATUS: HOMAR GUZMANRanjit #: [id number] ANH: 05/27/21 01:[address]: Alesha Casey DEPT: SURGICAL PATHOLOGY RECD BY: Calli Rodriguez ENTERED: 05/27/21 12:09 SP TYPE: PLACENTA OTHR DR: Dr. Km Barry, DO Tissues: Placenta, NOS Procedures: Surgery Specimen Level V HEADER OPERATION: Vaginal delivery PRE-OP DIAGNOSIS: Preeclampsia with severe features, 35-week gestation TISSUE SUBMITTED: Placenta MICROSCOPIC DIAGNOSIS Placenta: Placental disc - third trimester placenta (560 gm). Membranes - no pathologic diagnosis. Umbilical cord - three blood vessels and no pathologic diagnosis. LE:austen 06/01/2021 MICROSCOPIC DESCRIPTION Slides are reviewed. GROSS DESCRIPTION SPECIMEN: PLACENTA / CLINICAL INFORMATION: A. Weight: 2.685 kg B. Gestational Age: 35 weeks C. Sex: Female PLACENTAL WEIGHT (POST FIXATION): 560 gm PLACENTAL DIMENSIONS: 20 x 16 x 3.5 cm PLACENTAL SHAPE: Usual ovoid PLACENTAL WEIGHT FOR GESTATIONAL AGE: Within 10-99th percentile MEMBRANES - Present A. Insertion: Marginal B. Site of rupture from edge: 5 cm from edge of placental disc C. Color of membrane: Cummings-hendricks D. Abnormalities: None UMBILICAL CORD - Present A. Color: Cummings-hendricks B. Insertion: Paracentrally inserted, 1 cm away from the margin C. Length: 33 cm D. Diameter: 1.3 cm E. Number of vessels: Three F. Abnormalities: None PLACENTAL DISC - Present A. Color of surface: Cummings-hendricks B. surface abnormalities: None C. Maternal cotyledons: Intact with minimal tears D. Attached retro placental clot: No clot E. Cut surface: Dark red and spongy F. Lesions: None G. Separate clot: Absent SECTIONS SUBMITTED: 1. Membrane roll 2. Cord, maternal end 3. Cord, end 4. Placental disc, and maternal surfaces 5. Placental disc, and maternal surfaces 6. Placental disc, and maternal surfaces SJ:austen 05/28/21 TC:4 CPT: 91528
--- NOTE | 2021-05-27 01:48 | EX.PCM.OBRPT ---
Assessment & Plan (1) 35 weeks gestation of : (2) Severe pre-eclampsia: QUALIFIERS: Trimester: third trimester Qualified Code(s): O14.13 - Severe pre-eclampsia, third trimester (3) (spontaneous vaginal delivery): Maternal Data Information Final JENN: 06/26/21 Final JENN Source: US <20 weeks Gestational age: 35 weeks 5 days Vaginal Delivery Maternal Presentation Maternal Presentation: Medically Indicated Induction Type of Induction: Cytotec and - (cytotec x 4, then pitocin and amniotomy) Medical Reason for Induction: Preeclampsia, eclampsia (preeclampsia with severe features) Operative Information Date of Procedure: 05/27/21 Pre-Operative Diagnosis: 1. 35 5/7 weeks gestation 2. Preeclampsia with severe features Post-Operative Diagnosis: 1. 35 5/7 weeks gestation 2. Preeclampsia with severe features Surgery / Procedure Performed: Spontaneous Vaginal Delivery Type of Anesthesia: Epidural Anesthesiologist: Loco Oviedo Drain: Sofia to straight drain Estimated Blood Loss: 600 ml Time of Delivery: 01:10 Findings Description of Procedure: Patient was fully dilated and +3 station on my arrival. She pushed to deliver a female in OA. was placed on the maternal abdomen and further attended by nursery personnel. The placenta delivered spontaneously and appeared intact on inspection. Bimanual uterine massage was performed for uterine atony with improvement and no hemorrhage was noted. Misoprostol 800 mcg was placed rectally. A second-degree perineal laceration with bilateral sulcal extension was repaired using 3-0 Vicryl Rapide with hemostasis obtained. Presentation: Vertex Amniotic Membrane Rupture Type: Artificial Time of Membrane Rupture: 05/26/21 0835h Amniotic Fluid Description: Clear Placental Delivery Description: Spontaneous Placenta Disposition: [facility] Specimen(s) Removed: placenta Cord Entanglement: None Nuchal Cord Compression: Without compression Cord Gases: ABG and VBG A Gender: Female (1 minute): 6 (5 minute): 9 Delayed Cord Clamping: Yes Post Vaginal Delivery Medications Given After Delivery: IV Pitocin and - (Cytotec per rectum) Episiotomy Description: None Laceration: Midline, Perineal Extension/lac, Vaginal Extension/lac and 2nd degree Complication Complications: None
--- NOTE | 2021-05-27 03:00 | NURSING ---
spoke to dr alexis rey. states she does not require pt to have oral fluid restrictions anymore with mag treatment. pt aware of this.
--- NOTE | 2021-05-27 10:20 | NURSING ---
Spoke with Dr. Beauchamp. Pt has 2gm magnesium running. Initial BP this morning was 123/62. 0845 BP 160/97, 0945 BP 144/81-pt feeling dizzy and lightheaded. Pt currently has no fluid restrictions and has had 650 out of wells since 644. Assessment within normal limits. Dr. Beauchamp stated to continue to monitor patient.
[2021-05-28] VITALS (34 sets, daily range): BP systolic 122–176; BP diastolic 67–105; PULSE 62–146; RESP 16–18; TEMP 36.2–36.9; O2SAT 79–99
[2021-05-28 06:30] LABS: Hematocrit 26.2 % (37-47); Hemoglobin 8.6 g/dL (12.0-15.0); Mean Corp Hgb Conc 32.8 g/dL (32-36); Mean Corpuscular Hgb 28.8 pg (27.0-32.0); Mean Corpuscular Volume 87.6 fL (81-99); Mean Platelet Vol. 10.5 fl (6.2-12.0); Platelet Count 230 K/mm3 (150-450); RBC Distribution Width CV 13.6 % (11.6-14.6); Red Blood Count 2.99 M/mm3 (4.2-5.4); White Blood Count 12.8 K/mm3 (4.4-11.0)
--- NOTE | 2021-05-28 08:32 | PCM.PN.OB ---
Subjective Subjective Reports mild headache after initial dose of Nifedipine now resolved. c/o heart racing however. No nausea, vision changes or abdominal pain. Otherwise feels well. She is pumping/. Denies heavy lochia. Objective Data Objective Data Vital Signs: Vital Signs Temp Pulse Resp BP Pulse Ox 98.3 F 86 18 122/79 H 95 05/29/21 04:10 05/29/21 04:10 05/29/21 04:10 05/29/21 04:10 05/29/21 04:10 Oxygen Delivery Method Room Air Weight: 108.635 kg Body Mass Index (BMI) 37.5 Intake & Output: Intake and Output for Last 24 Hours 05/27/21 05/28/21 05/29/21 23:59 23:59 23:59 Intake Total 3190.00 / 3190.00 Output Total 3000 / 3000 Balance 190.00 / 190.00 Lab / Micro Data Result Diagrams: 05/28/21 06:20 05/26/21 14:00 Micro: Microbiology 05/25/21 00:37 Nasal Secretion SARS-CoV-2 Antigen (Rapid) - Final Physical Exam Const alert, oriented x3 and no apparent distress Resp normal respiratory effort and normal air movement Cardio regular rhythm, S1 normal heart sound and S2 normal heart sound Cardio Narrative: tachycardia, HR 140 bpm Uterus Palpation: uterus fundus firm and other OB fundus nontender Extremity no calf tenderness Neuro oriented x3 Neuro Narrative: +2 b/l LE DTRs, no clonus Assessment & Plan (1) (spontaneous vaginal delivery): PLAN: PPD#1 Pumping/ Rh positive Routine care (2) Severe pre-eclampsia: QUALIFIERS: Trimester: third trimester Qualified Code(s): O14.13 - Severe pre-eclampsia, third trimester PLAN: Suspect rebound tachycardia 2/2 nifedipine po rapid acting Serial BPs, continuous pulse monitoring Transition to nifedipine XL
--- NOTE | 2021-05-28 08:39 | NURSING ---
this morning pt is sitting up in a chair in the special care nursery. this nurse took her bp and noted it to be elevated 136/101. after 20 min i retook it and it was 145/105, these were reported to dr. ansari and she gave new orders. will update the pt.
[2021-05-28] MEDS: NIFEdipine 10 MG Capsule PO (08:50)
--- NOTE | 2021-05-28 09:42 | NURSING ---
pt in her room and dr.holmes ery in to see the pt, pt states she felt she had chest palpatations, her heart rates was 143, blood pressure 137/73. dr.holmes rey states to hold the nifedipine 60mg and we will do serial bp's
[2021-05-28] MEDS: Acetaminophen 500 MG Tablet PO ×2 (10:09→15:55)
[2021-05-28] MEDS: NIFEdipine 60 MG Tablet PO ×2 (14:19→14:20)
--- NOTE | 2021-05-28 16:52 | NURSING ---
dr.holmes rey updated per phone call on pt's vital signs, new order given and pharmacy comm sent to send it PHAM.
[2021-05-28] MEDS: NIFEdipine 30 MG Tablet PO (17:06)
[2021-05-28] MEDS: Ibuprofen 600 MG Tablet PO (19:36)
[2021-05-28] MEDS: Prenatal Vits Tablet 2 TABLET PO (19:37)
[2021-05-28] MEDS: 0.9% Saline Lock 10 ML Syringe IV (19:38)
[2021-05-29] VITALS (9 sets, daily range): BP systolic 122–151; BP diastolic 79–97; PULSE 80–108; RESP 14–24; TEMP 36.1–36.9; O2SAT 95–98
--- NOTE | 2021-05-29 08:20 | PN.OBGYN_ITS ---
Subjective Subjective Denies headache, vision changes, shortness of breath, chest pain. She feels well. Reports anxiety with intermittent heart racing overnight. Denies sweating or sweaty palms, lump in throat, tearfulness. + restlessness and feeling overwhelmed. hx depression as teen associated with of friend and took Wellbutrin for several years after with improvement. No current or prior therapy. Pumping going well and milk coming in. Objective Data Objective Data Vital Signs: Vital Signs Temp Pulse Resp BP Pulse Ox 98.3 F 83 18 122/79 H 98 05/29/21 04:10 05/29/21 08:18 05/29/21 04:10 05/29/21 04:10 05/29/21 08:18 Oxygen Delivery Method Room Air Weight: 108.635 kg Body Mass Index (BMI) 37.5 Intake & Output: Intake and Output for Last 24 Hours 05/27/21 05/28/21 05/29/21 23:59 23:59 23:59 Intake Total 3190.00 / 3190.00 Output Total 3000 / 3000 Balance 190.00 / 190.00 Lab / Micro Data Result Diagrams: 05/28/21 06:20 05/26/21 14:00 Micro: Microbiology 05/25/21 00:37 Nasal Secretion SARS-CoV-2 Antigen (Rapid) - Final Physical Exam Const alert, oriented x3 and no apparent distress Resp normal respiratory effort and normal air movement Cardio regular rate, regular rhythm, S1 normal heart sound and S2 normal heart sound GI soft to palpation, non-tender and non-distended Narrative: lochia scant Uterus Palpation: uterus fundus firm and other OB fundus nontender Extremity no calf tenderness Neuro oriented x3 Psych mental status grossly normal Assessment & Plan (1) (spontaneous vaginal delivery): PLAN: Rh positive /pumping Routine care Anxiety situational however pt at increased risk for PP depression. Resume well butrin. (2) Severe pre-eclampsia: QUALIFIERS: Trimester: third trimester Qualified Code(s): O14.13 - Severe pre-eclampsia, third trimester PLAN: Nifedipine increased to XL 90mg today Continue to monitor BPs.
[2021-05-29] MEDS: 0.9% Saline Lock 10 ML Syringe IV (08:30)
[2021-05-29] MEDS: Acetaminophen 500 MG Tablet PO ×2 (08:37→19:47)
[2021-05-29] MEDS: NIFEdipine 90 MG Tablet PO (10:19)
[2021-05-29] MEDS: buPROPion (XL) 150 MG TABLET.XL PO (11:25)
[2021-05-29] MEDS: Prenatal Vits Tablet 2 TABLET PO (11:25)
[2021-05-30 04:48] VITALS: BP 144/91; PULSE 88; RESP 16; TEMP 36.5; O2SAT 98
--- NOTE | 2021-05-30 07:22 | NURSING ---
report given to Nhan Pruett RN who is assuming care of pt at this time
[2021-05-30 07:51] VITALS: BP 159/107; PULSE 84; RESP 16; TEMP 36.1; O2SAT 98
[2021-05-30 07:54] VITALS: PULSE 86; O2SAT 98
[2021-05-30 08:05] VITALS: BP 140/98
[2021-05-30] MEDS: buPROPion (XL) 150 MG TABLET.XL PO (08:58)
[2021-05-30] MEDS: NIFEdipine 90 MG Tablet PO (08:58)
[2021-05-30] MEDS: 0.9% Saline Lock 10 ML Syringe IV (08:59)
[2021-05-30] MEDS: Prenatal Vits Tablet 2 TABLET PO (09:32)
--- NOTE | 2021-05-30 10:21 | PCM.PN.OB ---
Subjective Subjective Patient without complaints. Denies any PIH symptoms. Blood pressures mildly elevated on Procardia XL 90 mg daily but patient indicates that she gets extremely anxious when blood pressures were taken. Her mother has a similar problem. Would like to go to hotel status today and continue daily blood pressures at home with her family monitoring. Objective Data Objective Data Vital Signs: Vital Signs Temp Pulse Resp BP Pulse Ox 97.0 F L 86 16 140/98 H 98 05/30/21 07:51 05/30/21 07:54 05/30/21 07:51 05/30/21 08:05 05/30/21 07:54 Oxygen Delivery Method Room Air Weight: 239 lb 8 oz Body Mass Index (BMI) 37.5 Lab / Micro Data Result Diagrams: 05/28/21 06:20 05/26/21 14:00 Micro: Microbiology 05/25/21 Unknown Genital vaginal Group B Streptococcus Culture - Final Group B Beta Streptococcus is not isolated. 05/25/21 00:37 Nasal Secretion SARS-CoV-2 Antigen (Rapid) - Final Assessment & Plan (1) (spontaneous vaginal delivery): PLAN: Doing well day #2 status post routine spontaneous vaginal delivery. No PIH symptoms. Blood pressures mildly elevated. Will release to hotel status today and monitor blood pressures at home with family. Patient was instructed to call if blood pressures were greater than one 145/95. Patient has been on Wellbutrin in the distant past but not recently. Denies any depression. Suggested she discontinue the Wellbutrin which she agrees with. Will call if she has any depression symptoms and will start Zoloft. Continuing Procardia XL 90 mg daily at home and follow-up in the office in 2 weeks.
--- NOTE | 2021-05-30 10:23 | PCM.DC ---
Discharge Instructions Diet Discharge Diet: No restrictions Activity Discharge Activity: May Drive (In 1 to 2 days if not taking narcotic pain medication), May Shower and May Take a Tub Bath May resume sexual activity in: 4-6 weeks Additional Activity Instructions:: Nothing in the vagina for 4-6 weeks. You may return to work/school in 6 weeks. Dressing / Incision Call your doctor if you observe: Fever of 101 or Higher, Inability to urinate, Inability to have a bowel movement and Using more than 1 pad per hour Follow Up Care Please Follow Up With: Alesha Casey MD When: Call [phone] to make an appointment with your doctor in 6 weeks. Test Results: Test results from this visit will be discussed in further detail at your follow-up appointment, if applicable. Discharge Plan Admission Admit Date/Time: 05/25/21 00:05 Primary Reason for Your Visit: Vaginal delivery, Preeclampsia Attending Provider: Alesha Casey Primary Care Provider: Km Barry Discharge Orders/Prescriptions Prescriptions: New ibuprofen 600 mg Tablet 600 mg PO Q8H PRN (Reason: Pain Score 1-3) Qty: 30 RF: 0 nifedipine [Procardia XL] 90 mg tablet extended release 24hr 90 mg PO DAILY Qty: 60 RF: 1 Continued [id number] oil 400 mcg-35 mg -25 mg-5 mg Tablet,Chewable 2 tab PO DAILY RF: 0 Referrals / Follow Up: Km Barry DO [Primary Care Provider] - Disposition Disposition (needs filled in before D/C Order can be placed): Home, Self Care
[2021-05-30 10:25] VITALS: BP 146/92
--- NOTE | 2021-05-30 10:28 | PCM.DC.SUM ---
Providers Date of Admission: 05/25/21 Primary Care Physician: Dr. Km Barry DO Reason For Visit: R/O PE Diagnosis Discharge Diagnosis (1) (spontaneous vaginal delivery): Status: Acute Code(s): O80 - Encounter for full-term uncomplicated delivery Medications at Discharge Home Medications [id number] oil 2 tab PO DAILY 05/23/21 ibuprofen 600 mg PO Q8H PRN #30 tab 05/29/21 nifedipine [Procardia XL] 90 mg PO DAILY #60 tab 05/30/21 Hospital Course Summary of Care Provided Hospital Course: Patient was admitted with severe -induced hypertension and placed on magnesium sulfate. She was approximately 35+ weeks gestation. She progressed and delivered without complication. Postoperatively the magnesium sulfate was discontinued after approximately 24 hours. Blood pressures continue to be elevated and she was started on Procardia XL 60 mg daily and then increased to 90 mg daily. Blood pressures continue to be mildly elevated but patient plans to continue monitoring these at home with her family. Baby is in special care nursery and mother was released to hotel status. Weight / BMI Weight Weight: 239 lb 8 oz Body Mass Index (BMI) 37.5 ABG / Lab / Microbiology Data Result Diagrams: 05/28/21 06:20 05/26/21 14:00 Microbiology: Microbiology 05/25/21 Unknown Genital vaginal Group B Streptococcus Culture - Final Group B Beta Streptococcus is not isolated. 05/25/21 00:37 Nasal Secretion SARS-CoV-2 Antigen (Rapid) - Final D/C Instructions Discharge Diet: No restrictions May resume sexual activity in: 4-6 weeks Additional Activity Instructions: Nothing in the vagina for 4-6 weeks. You may return to work/school in 6 weeks. Call your doctor if you observe: Fever of 101 or Higher, Inability to urinate, Inability to have a bowel movement and Using more than 1 pad per hour Please Follow Up With: Alesha Casey MD When: Call [phone] to make an appointment with your doctor in 6 weeks. Meaningful Use Info Meaningful Use Diagnoses (Choose all that apply): None applicable Discharge Plan Admission Admit Date/Time: 05/25/21 00:05 Primary Reason for Your Visit: Vaginal delivery, Preeclampsia Attending Provider: Alesha Casey Primary Care Provider: Km Barry Discharge Orders/Prescriptions Prescriptions: New ibuprofen 600 mg Tablet 600 mg PO Q8H PRN (Reason: Pain Score 1-3) Qty: 30 RF: 0 nifedipine [Procardia XL] 90 mg tablet extended release 24hr 90 mg PO DAILY Qty: 60 RF: 1 Continued [id number]-[id number] oil 400 mcg-35 mg -25 mg-5 mg Tablet,Chewable 2 tab PO DAILY RF: 0 Referrals / Follow Up: Km Barry DO [Primary Care Provider] - Disposition Disposition (needs filled in before D/C Order can be placed): Home, Self Care
--- NOTE | 2021-05-30 10:38 | NURSING ---
This RN in room with pt and Dr Beauchamp while MD rounding. Dr Beauchamp stated that pt to call provider if her BP's at home are greater than 150 systolic or 95 diastolic. To continue taking procardia at home.
--- NOTE | 2021-05-30 10:44 | NURSING ---
Dr Beauchamp informed of . Dr Beauchamp stated this is good for pt and is ok with her still being discharged to hotel status.
[2021-06-01 08:01] LABS: Pathology Specimen OB SEE PATHOLOGY REPORT
== END 2021-05-30 11:00 | disposition home or self-care (01) | DRG 807 ==
LOC: WP 07:03 → WPOUT 05-26 16:11
PROVIDERS: Student in an Organized Health Care Education/Training Program; Admitting Provider Obstetrics & Gynecology; PCP Student in an Organized Health Care Education/Training Program; Visit Provider Obstetrics & Gynecology
DX: O14.14 Severe pre-eclampsia complicating childbirth (principal); Z37.0 Single live birth; O62.2 Other uterine inertia; O70.1 Second degree perineal laceration during delivery; O99.345 Other mental disorders complicating the puerperium; F41.8 Other specified anxiety disorders; Z3A.35 35 weeks gestation of pregnancy
CPT/HCPCS: 59025; 59050; 80053; 82565; 83615; 83721; 83735; 84450; 84460; 84550; 85025; 85027; 86850; 86900; 86901; 87081; 87426; 87653; 88307; 99218; J7120; A4216; G0378; J0702; J2405

== ENCOUNTER 2021-06-23 16:30 | Outpatient (CLI) | payer OTHER, SELFPAY | END 2021-06-23 23:59 | disposition short-term general hospital (02) | LOC: LABSPEC 06-24 10:03 | PROVIDERS: PCP Student in an Organized Health Care Education/Training Program; Visit Provider Obstetrics & Gynecology | DX: N77.1 Vaginitis, vulvitis and vulvovaginitis in diseases classified elsewhere (principal) ==

== ENCOUNTER → 2022-05-07 | Outpatient (CLI) | payer MEDICAID, SELFPAY | END | disposition home or self-care (01) | PROVIDERS: PCP Student in an Organized Health Care Education/Training Program; Visit Provider Obstetrics & Gynecology | DX: N76.0 Acute vaginitis (principal); Z11.3 Encounter for screening for infections with a predominantly sexual mode of transmission ==

== ENCOUNTER 2024-08-30 19:21 | Emergency (ER) | payer OTHER, MEDICAID, SELFPAY ==
[2024-08-30 19:22] VITALS: BP 128/73; PULSE 100; RESP 16; TEMP 36.7; O2SAT 100; BMI 30.2
--- NOTE | 2024-08-30 19:31 | EKG12_ITS ---
Test Reason : CP Blood Pressure : */* mmHG Vent. Rate : 100 BPM Atrial Rate : 100 BPM P-R Int : 156 ms QRS Dur : 96 ms QT Int : 340 ms P-R-T Axes : 36 36 46 degrees QTcB Int : 438 ms Normal sinus rhythm Normal ECG Confirmed by BONNIE ASHLEY, MINOR ([id number]), editor school photograph MONET CALLAHAN ([id number]) on 08/31/2024 11:23:25 AM Referred By: Rashaun Gonzalez Confirmed By: MINOR NICOLE MD
--- NOTE | 2024-08-30 20:07 | EDS_ITS ---
HPI History of Present Illness Chief Complaint: Chest Pain Detail of Chief Complaint: Shortness of breath and left arm Informant: patient Narrative Narrative: Patient presents the emergency department complaint of feeling somewhat short of breath today while at work and then developed some discomfort into her left arm. She describes some chest tightness. Patient just found out she was a week ago and think she might be around 4 weeks . She had just missed a period that is when she tested. She is G2, P1. Denies recent travel or surgery. She denies cough or fever or recent illness. She does have history of anxiety but just wanted to make sure that she was okay being that she has a child at home and she just found out she was . Patient believes it is probably her anxiety. She does not take medications for anxiety [facility] Medical History (Updated 08/30/24 @ 20:[address] Rashaun Gonzalez, ) (spontaneous vaginal delivery) 35 weeks gestation of Pre-eclampsia Severe pre-eclampsia Home Medications ?Medication ?Instructions ?Recorded ?Last Taken ?Type XAB69-BP 400 mcg-om3 35 mg-dha 25 2 tab PO DAILY pregn hilario 05/23/21 05/24/21 09:00 History mg-epa 5 mg-fish oil chewable tablet ibuprofen 600 mg tablet 600 mg PO Q8H PRN Pain Score 1-3 05/29/21 Unknown Rx #30 tabs nifedipine 90 mg tablet,extended 90 mg PO DAILY #60 ta bs 05/30/21 Unknown Rx release 24 hr (Procardia XL) Allergy/AdvReac Type Severity Reaction Status Date / Time nickel (Nickel) Allergy Rash Verified 08/30/24 19:27 Social History (Updated 12/20/19 @ 11:42 by Jesse SHEN, PA) Smoking Status: Never smoker ROS ROS ED Review of Systems ROS Unobtainable: other Constitutional Constitutional ED: Reports lethargy; Denies chills, fever(s), sweats or weight loss Eyes Eyes: Denies blurry vision, change in vision or diplopia ENT ENT ED: Denies rhinorrhea or sore throat Cardiovascular Cardiovascular: Reports chest pain; Denies orthopnea or racing heartbeat Respiratory/Chest Respiratory/Chest: Reports dyspnea; Denies cough, dyspnea on exertion, orthopnea or sputum Gastrointestinal Gastrointestinal: Denies abdominal pain, diarrhea, nausea or vomiting Genitourinary Genitourinary ED: Denies dysuria, hematuria or urinary frequency Musculoskeletal Musculoskeletal: Denies arthralgias, back pain, myalgias or neck pain Integumentary Denies abscess, Abrasions or rash Neurologic Neurologic: Reports paresthesias; Denies headache(s) or weakness Psychiatric Psychiatric: Reports anxiety; Denies depression or suicidal thoughts Endocrine Endocrinology: Denies polydipsia, polyphagia or polyuria Hematologic/Lymphatic Hematologic/Lymphatic: Denies easy bleeding, easy bruising or lymphadenopathy Allergic/Immunologic Allergic/Immunologic ED: Denies mouth swelling, tongue swelling or urticaria EXAM Physical Exam Const Vital Signs: 08/30/24 19:22 08/30/24 20:05 Temperature 98.0 F Temperature Source Temporal Pulse Rate 100 Respiratory Rate 16 Respiratory Effort Normal Blood Pressure 128/73 H Blood Pressure Mean 91 Pulse Ox 100 Oxygen Delivery Method Room Air Positive well nourished and well developed General Appearance ED: well developed and NAD HEENT Reports TM's clear and moist mucous membranes normocephalic and atraumatic; Negative for trauma or tenderness Tympanic Membrane ED: Yes TM's clear Eyes PERRL and EOMs intact bilaterally General Eye ED: Negative for pale conjunctiva or scleral icterus Neck no lymphadenopathy, supple and no JVD General: Negative for tenderness Chest Wall inspection of chest normal and palpation of chest normal Chest: Negative for tenderness Resp normal respiratory effort and clear to auscultation bilaterally Effort and Inspection: Negative for respiratory distress or pain with movement Auscultation: Negative for rhonchi, wheezes or diminished lung sounds Cardio regular rate, regular rhythm, S1 normal heart sound, S2 normal heart sound and no murmurs Peripheral Pulses: pulses 2+ throughout GI normal to inspection, nondistended, normoactive bowel sounds, soft to palpation, non-tender, non-distended and no masses Back/Spine no CVA tenderness and no thoracic nor lumbar tenderness Extremity normal to inspection General Extremety ED: Negative for edema General Extremity: Negative for edema Neuro oriented x3, CN's II-XII intact bilaterally, no sensory deficits noted and gait normal Sensorium / Orientation: awake, alert, oriented to person, oriented to place and oriented to time Motor Exam: strength 5/5 throughout and strength abnormal Psych mental status grossly normal Skin no rashes or lesions noted and no wounds MDM MDM MDM Narrative Medical decision making narrative: Patient presents with that started today while at work. Clinically she looks well and she essentially normal vital signs. Her exam is normal. She has no risk factors for heart disease. No PE risk factors other than that she recently found out she was and she is quite early in her . My clinical concern for PE is extremely low. She did have an EKG obtained on arrival that showed a sinus rhythm with a rate of 100 bpm with no acute ST segment changes. Given her normal exam and early state I did not think imaging of her chest was in the did and she is comfortable with this as she has normal vitals and normal lung sounds. At this point she is comfortable being discharged to home. Advised her to follow-up with her primary care physician within next 3 to 5 days or [facility]. She is to return if increasing shortness of breath, not worsening pain, abdominal pain or vaginal bleeding, or condition worsening right EKG Initial EKG: Attestation: I personally reviewed and interpreted this EKG as follows: Comments: Sinus rhythm with a rate of 100 bpm with no acute ST segment change Discharge Plan Triage Chief Complaint: Chest Pain ED Provider: Rashaun Gonzalez Dx/Rx/DC Orders Clinical Impression: Chest pain, Anxiety, First trimester Instructions: 1st Trimester, ED Anxiety Reaction, ED Chest Pain, Uncertain Cause Prescriptions: No Action [id number] oil 400 mcg-35 mg -25 mg-5 mg Tablet,Chewable 2 tab PO DAILY ibuprofen 600 mg Tablet 600 mg PO Q8H PRN (Reason: Pain Score 1-3) Qty: 30 0RF nifedipine [Procardia XL] 90 mg tablet extended release 24hr 90 mg PO DAILY Qty: 60 1RF Primary Care Provider: Km Barry Referrals: Km Barry DO [Primary Care Provider] - 3-5 Days Print Language: Belizean Disposition Disposition: Home, Self Care
[2024-08-30 20:22] VITALS: PULSE 98; RESP 17; O2SAT 97
== END 2024-08-30 20:25 | disposition home or self-care (01) ==
LOC: ED 20:17
PROVIDERS: Emergency Provider Emergency Medicine; PCP Student in an Organized Health Care Education/Training Program; Referring Provider Emergency Medicine; Visit Provider Emergency Medicine
DX: O99.891 Other specified diseases and conditions complicating pregnancy (principal); O99.341 Other mental disorders complicating pregnancy, first trimester; F41.9 Anxiety disorder, unspecified; R07.9 Chest pain, unspecified; Z3A.00 Weeks of gestation of pregnancy not specified
CPT/HCPCS: 93005; 99282